=== PATIENT | female | born 1955 | race Caucasian/White ===

== ENCOUNTER 2019-05-04 08:32 | Day surgery (SDC) | payer BC ==
[2019-05-03 10:50] VITALS: BMI 24.4
[2019-05-04] MEDS ORDERED: POVIDONE-IODINE 5% OPHTHALMIC PREP 30 ML SOLUTION ONE (10:45)
[2019-05-04] MEDS ORDERED: ERYTHROMYCIN 0.5% OPHTHALMIC OINTMENT 3.5 GM TUBE ONE (10:45)
[2019-05-04] MEDS ORDERED: LIDOCAINE 1%/EPI 1:100000 (20 ML MULTI DOSE VIAL) ONE (10:45)
[2019-05-04] MEDS ORDERED: BUPIVACAINE HCL/PF 0.5% (5MG/ML) 10 ML VIAL ONE (10:45)
[2019-05-04] MEDS ORDERED: TETRACAINE 0.5% OPHTH SOLN 2 ML BOTTLE ONE (10:45)
[2019-05-04] MEDS ORDERED: MIDAZOLAM HCL 2 MG/2 ML SINGLE DOSE VIAL ONE (11:03)
[2019-05-04] MEDS ORDERED: PROPOFOL 20 ML ONE ×2 (11:14)
[2019-05-04] MEDS ORDERED: ceFAZolin SODIUM 1 GM VIAL ONE (11:18)
[2019-05-04] MEDS ORDERED: ACETAMINOPHEN 1000 MG/100 ML VIAL (NON FORMULARY) IVPB ONE (11:58)
[2019-05-04] MEDS ORDERED: oxyCODONE HCL 5 MG TABLET PO PRN (11:58)
[2019-05-04] MEDS ORDERED: ONDANSETRON 4 MG/2 ML VIAL IVPUSH PRN (11:58)
[2019-05-04] MEDS ORDERED: LACTATED RINGERS SOLUTION 1,000 ML IV SCH (12:00)
[2019-05-04] MEDS ORDERED: ONDANSETRON 4 MG/2 ML VIAL ONE (12:11)
[2019-05-04] MEDS ORDERED: oxyCODONE HCL 5 MG TABLET ONE (12:51)
[2019-05-04 12:56] VITALS: TEMP 97.7
[2019-05-04 13:34] VITALS: BP 120/61; PULSE 56
--- NOTE | 2019-05-05 01:26 | OP ---
DATE OF OPERATION: 05/04/2019 PREOPERATIVE DIAGNOSIS: Ptosis, involutional, postsurgical, right upper lid with visual obstruction. POSTOPERATIVE DIAGNOSIS: Ptosis, involutional, postsurgical, right upper lid with visual obstruction. PROCEDURE: Levator advancement and reattachment right upper lid. SURGEON: Maribel Latham MD ANESTHESIA: Local with sedation. COMPLICATIONS: None. ESTIMATED BLOOD LOSS: Less than 1 mL. DESCRIPTION OF PROCEDURE: Patient was brought to the operating room and placed on the operating room table. Vital signs were monitored by Anesthesia. Tetracaine was placed in both eyes. The lid crease was marked approximately 10 mm above the lash line, essentially tapering nasally and temporally. A timeout was performed. The patient was given intravenous sedation and 2% Xylocaine with 1:100,000 epinephrine was injected subcutaneously for a total of 0.5 mL and massaged for disbursement of anesthetic. Patient was prepped and draped in the usual sterile fashion, exposing both eyes. An incision was made in the lid crease with a 15-blade through the skin and subcutaneous tissue. This was carried down to the orbicularis layer with a [place] needle. Hemostasis was achieved with the [place] needle. Dissection was carried up under the orbicularis superiorly and the septum was widely opened, exposing the preaponeurotic fat, which was retracted, exposing the dehisced levator aponeurosis. The exposed orbicularis plane was then dissected inferiorly, exposing the anterior superior tarsus. Hemostasis was again achieved with the [place] needle. The levator was advanced to the anterior superior tarsus and the double-armed spatulated needle with 6-0 Vicryl suture was passed in 2 horizontal passes through the central portion of the tarsus. The lid was everted demonstrating no penetration of the suture. Each arm of the suture was then passed through the advanced levator and tied with a slip knot. The patient was placed in the upright position and this was seen to be too high. Therefore, she was put again in the supine position and the advancement of the levator was backed off to the leading edge with a tiny resection of diaphanous tissue. This was retied. The patient was again placed in the upright position and was seen to be reasonable contour with approximately lid height of 2.5 to 3 mm above the visual axis with good contour. The patient was placed in the supine position. The sutures were tied. The position of the eyelid was again checked and then the wound was closed after antibiotic irrigation with a running 6-0 plain suture. Erythromycin ointment was placed in the eye and on the sutures. The patient was taken to the recovery room in stable condition. MARIBEL LATHAM M.D. [id number]
== END 2019-05-04 13:30 | disposition home or self-care (01) ==
LOC: FASU 08:32
PROVIDERS: ATTEND Ophthalmology
PROC: 08SN0ZZ Reposition Right Upper Eyelid, Open Approach (ICD-10-PCS; principal; 2019-05-04 11:23)
DX: H02.401 Unspecified ptosis of right eyelid (principal); H53.451 Other localized visual field defect, right eye
CPT/HCPCS: 94760; J0131